=== PATIENT | female | born 2000 | race American Indian/Alaskan Native ===

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

== ENCOUNTER 2022-06-28 | Emergency (ER) | payer SELFPAY ==
[2022-06-28 02:13] LABS: Basophils % (Auto) 0.1 % (0.0-1.8); Eosinophils % (Auto) 0.2 % (0.0-4.3); Hematocrit 31.9 % (30.3-42.9); Hemoglobin 9.8 gm/dl (10.1-14.3); Lymphocytes # (Auto) 1.7 K/mm3 (1.2-5.4); Lymphocytes % (Auto) 12.4 % (13.4-35.0); Mean Corpuscular HGB Conc 31 % (30-34); Mean Corpuscular Volume 82 fl (79-97); Monocytes # (Auto) 1.3 K/mm3 (0.0-0.8); Monocytes % (Auto) 9.7 % (0.0-7.3); Platelet Count 320 K/mm3 (140-440); Red Cell Distribution Width 17.6 % (13.2-15.2)
[2022-06-28 02:34] LABS: Amorphous Crystals,Urine Few; Bacteria,Urine 1+ /HPF (Negative)
[2022-06-28 02:38] LABS: Bilirubin,Urine Negative (Negative); Blood,Urine Small (Negative); Color,Urine Yellow (Yellow)
[2022-06-28 02:39] LABS: Urobilinogen,Urine < 2.0 mg/dL (<2.0)
[2022-06-28 03:04] LABS: HCG Qualitative,Urine Negative (Negative)
[2022-06-28] MEDS ORDERED: KETOROLAC 60 MG/2 ML INJ IM STA (04:31)
[2022-06-28 06:59] VITALS: BP 127/60
== END 2022-06-28 07:06 | disposition home or self-care (01) ==
LOC: ED
DX: N89.8 Other specified noninflammatory disorders of vagina (principal); M79.18 Myalgia, other site; Z53.21 Procedure and treatment not carried out due to patient leaving prior to being seen by health care provider
CPT/HCPCS: 36415; 81001; 81025; 85025; 87086; 87210; 96372; J1885; 87591; 99283